=== PATIENT | female | born 1980 | race Two or more races ===

== ENCOUNTER 2023-11-26 22:26 | Emergency (ER) | payer SELFPAY ==
[~2023-11-26] VITALS: Ht 152.4 cm; Wt 112.0 kg
[~2023-11-26 22:26] MED LIST: ACET-1882 PO; ERGO1CAP23 PO; INSLANTI SC; INSREGI SC; LEVO500T91 PO; MET500T PO; METF-372 PO; POTA-36 PO
[2023-11-27 03:50] LABS: Basophils # (auto) 0.1 10 ^3/uL (0-0.2); Basophils % (auto) 1.4 % (0.0-2.0); Eosinophils # (auto) 0.3 10 ^3/uL (0-0.8); Eosinophils % (auto) 3.6 % (0.0-7.0); Hematocrit 40.4 % (36.0-46.0); Hemoglobin 13.1 g/dL (12.2-16.2); Lymphocytes # (auto) 2.4 10 ^3/uL (0.4-5.4); Lymphocytes % (auto) 31.9 % (10.0-50.0); Mean Corpuscular Hemoglobin 29.3 pg (28.0-32.0); Mean Corpuscular Hgb Conc. 32.4 g/dL (32.0-36.0); Mean Corpuscular Volume 90.3 fL (80.0-100.0); Monocytes # (auto) 0.6 10 ^3/uL (0-1.3); Neutrophils # (auto) 4.2 10 ^3/uL (1.6-8.6); Neutrophils % (auto) 55.1 % (37.0-80.0); Nucleated Red Blood Cells % 0.1 %; Red Blood Cells 4.47 10^6/uL (4.0-5.20); Red Cell Distribution Width 12.9 % (11.8-14.3); White Blood Cell 7.7 10^3/uL (4.4-10.8)
[2023-11-27 04:15] LABS: Alanine Aminotransferase 17 U/L (7-40); Albumin 4.2 g/dL (3.2-4.8); Alkaline Phosphatase 100 U/L (46-116); Anion Gap 7 (5-15); Aspartate Aminotransferase 21 U/L (13-40); Bilirubin, Total 0.3 mg/dL (0.2-1.0); Blood Urea Nitrogen 13 mg/dL (9-23); Calcium 9.6 mg/dL (8.7-10.4); Carbon Dioxide 26 mmol/L (20-30); Chloride 106 mmol/L (98-107); Glucose 164 mg/dL (74-106); Potassium 4.3 mmol/L (3.5-5.1); Sodium 139 mmol/L (136-145); Total Protein 7.4 g/dL (5.7-8.2)
[2023-11-27] MEDS ORDERED: BAC09TP TOP (05:34)
[2023-11-27 05:43] VITALS: BP 151/91; PULSE 101; RESP 18; TEMP 98.1; O2SAT 98
== END 2023-11-27 05:42 | disposition home or self-care (01) ==
LOC: ER 22:26
DX: T85.63 Leakage of other specified internal prosthetic devices, implants and grafts (principal); E11.9 Type 2 diabetes mellitus without complications; Z48.03 Encounter for change or removal of drains; Z98.890 Other specified postprocedural states; Z79.899 Other long term (current) drug therapy; X58.XXXD Exposure to other specified factors, subsequent encounter
CPT/HCPCS: 36415; 74176; 80053; 85025

== ENCOUNTER 2024-07-18 08:34 | Emergency (ER) | payer SELFPAY ==
[~2024-07-18] VITALS: Ht 154.9 cm; Wt 118.2 kg
[~2024-07-18 08:34] MED LIST changes: +BAC09TP TOP
--- NOTE | 2024-07-18 09:35 | ED.PDOC ---
Back pain HPI HPI Comments 43-year-old female patient presents to the emergency room for right-sided neck pain that started 1 week ago. Patient reports that she was doing yd work outside and that she woke up with the pain the next day. Patient reports that she was unable to rotate the neck. Patient now has full range of motion to the neck. Patient has severe tenderness to the right side of the neck radiating to the shoulder. Patient reports that she has been taking a leave and her 's muscle relaxer which has minimally decreased the pain. Patient has an appointment with her primary care physician on August 24. Chief Complaint: Neck Pain Time Seen by MD: 08:53 Primary Care Provider: AMANDA Reviewed Notes: Nurses Notes, Medications Allergies: Coded Allergies: NO KNOWN ALLERGIES (Unverified , 11/10/23) Home Meds Active Scripts Lidocaine (Lidocaine) 5 % Pad, 5 % EX DAILY PRN for 30 Days, #30 PATCH 0 Refills Prov:CHRISSY HOOPER [facility] 07/18/24 Tizanidine Hydrochloride (Zanaflex) 4 Mg Cap, 1 CAP PO TID PRN for 21 Days, #63 CAP 0 Refills Prov:CHRISSY HOOPER [facility] 07/18/24 Prednisone (Prednisone) 20 Mg Tab, 50 MG PO DAILY for 5 Days, #5 TAB 0 Refills Prov:CHRISSY HOOPER [facility] 07/18/24 Ibuprofen Micronized (Ibuprofen) 800 Mg Tab, 800 MG PO TID for 30 Days, #90 TAB 0 Refills Prov:EAR[facility]adhaCH[facility]ISSY [facility] 07/18/24 Bacitracin (Bacitracin Oint) 1 Applic Ap, 1 APPLIC TOP TID, #30 GM Prov:CARINA BEAUCHAMP MD 11/27/23 Metformin Hydrochloride (Metformin Hcl) 1,000 Mg Tab, 500 MG PO BID for 30 Days, #30 TAB Prov:LOLA FORD 11/15/23 Potassium Chloride (POTASSIUM CHLORIDE CR) 10 Meq Tb, 1 TAB PO DAILY for 7 Days, #7 TAB 5 Refills Prov:LOLA FORD 11/15/23 Insulin Regular (Human) (Novolin R) 100 Unit/Ml Inj, 2 UNITS SC IQ4HR for 30 Days, #30 INJ Prov:LOLA FORD 11/15/23 Insulin Glargine (Lantus) 100 Unit/Ml Inj, 15 UNITS SC HS for 30 Days, #30 INJ Prov:LOLA FORD [facility] 11/15/23 Insulin Glargine (Lantus) 100 Unit/Ml Inj, 15 UNITS SC QAM for 30 Days, #30 INJ Prov:LOLA FORD [facility] 11/15/23 Ergocalciferol (VITAMIN D 85959 UNIT) 50,000 [place], [address] UNIT PO Q7D for 30 Days, #10 CAP Prov:LOLA FORD [facility] 11/15/23 Metronidazole (Metronidazole) 500 Mg Tab, 500 MG PO TID for 7 Days, #21 TAB Prov:LOLA FORD [facility] 11/15/23 Levofloxacin Hemihydrate (LEVOFLOXACIN) 500 Mg Tab, 1 TAB PO DAILY, #7 TAB Prov:LOLA FORD [facility] 11/15/23 Acetaminophen (Acetaminophen) 325 Mg Tab, 650 MG PO Q6HP PRN for 30 Days, #240 TAB Prov:LOLA FORD [facility] 11/15/23 Mode of Arrival: Ambulatory Past Medical History PAST MEDICAL HISTORY: DM, Denies Surgical History: COSMETIC MANAGER History: No Pertinent COSMETIC MANAGER History Family History Family History: Reviewed,noncontributory to illness, Unknown Social History Smoker: Non-Smoker Alcohol: Denies ETOH Use Drugs: Denies Drug Use Lives In: Home Constitutional: denies: chills, diaphoresis, fatigue, fever, malaise, sweats, weakness, others EENTM: denies: blurred vision, double vision, ear bleeding, ear discharge, ear drainage, ear pain, ear ringing, eye pain, eye redness, hearing loss, mouth pain, mouth swelling, nasal discharge, nose bleeding, nose congestion, nose p ain, photophobia, tearing, throat pain, throat swelling, voice changes, others Respiratory: denies: cough, hemoptysis, orthopnea, SOB at rest, shortness of breath, SOB with excertion, stridor, wheezing, others Cardiovascular: denies: chest pain, dizzy spells, diaphoresis, Dyspnea on exertion, edema, irregular heart beat, left arm pain, lightheadedness, palpitations, PND, syncope, others Gastrointestinal: denies: abdomen distended, abdominal pain, blood streaked bowels, constipated, diarrhea, dysphagia, difficulty swallowing, hematemesis, melena, nausea, poor appetite, poor fluid intake, rectal bleeding, rectal pain, vomiting, others Genitourinary: denies: abnormal vagina bleeding, burning, dyspareunia, dysuria, flank pain, frequency, hematuria, incontinence, pain, , vagina discharge, urgency, others Neurological: denies: dizziness, fainting, headache, left sided numbness, left sided weakness, numbness, paresthesia, pre-existing deficit, right sided numbness, right sided weakness, seizure, speech problems, tingling, tremors, weakness, others Musculoskeletal: reports: neck pain (right sided muscle pain) Integumetry: denies: bruises, change in color, change in hair/nails, dryness, laceration, lesions, lumps, rash, wounds, others Allergic/Immunocompromised: denies: Difficulty Healing, Frequent Infections, Hives, Itching, others Hematologic/Lymphatic: denies: anemia, blood clots, easy bleeding, easy bruising, swollen glands, others Endocrine: denies: excessive hunger, excessive sweating, excessive thirst, excessive urination, flushing, intolerance to cold, intolerance to heat, unexplained weight gain, unexplained weight loss, others Psychiatric: denies: anxiety, bipolar disorder, depression, hopeless, panic disorder, schizophrenia, sleepless, suicidal, others All Other Systems: Reviewed and Negative Physical Exam General Appearance: No Apparent Distress, Normal HEENT: Normal ENT Inspection, Pharynx Normal, TMs Normal Neck: Full Range of Motion, Normal, Normal Inspection, Tender Lateral (right side of neck ) Respiratory: Chest Non-Tender, Lungs Clear, No Accessory Muscle Use, No Respiratory Distress, Normal Breath Sounds Cardiovascular: No Edema, No JVD, No Murmur, No Gallop, Normal Peripheral Pulses, Regular Rate/Rhythm Breast Exam: Deferred Gastrointestinal: No Organomegaly, Non Tender, No Pulsatile Mass, Normal Bowel Sounds, Soft Genitalia: Deferred Pelvic: Deferred Rectal: Deferred Extremities: No calf tenderness, Normal capillary refill, Normal inspection, Normal range of motion, Non-tender, No pedal edema Musculoskeletal : Location: Right Extremity Location: Other (neck) Apperance: Normal, Tenderness (right sided neck pain and increased ttp) Neurologic: Alert, cigar packer and picker II-XII nml as Tested, No Motor Deficits, Normal Affect, Normal Mood, No Sensory Deficits Cerebellar Function: Normal Reflexes: Normal Skin: Dry, Normal Color, Warm Lymphatic: No Adenopathy Was a procedure done? Was a procedure done?: No Back Pain Differential Dx Differential Diagnosis: Musculoskeletal Pain, Strain X-Ray, Labs, Meds, VS Vital Signs Date Time Temp Pulse Resp B/P (MAP) Pulse Ox O2 Delivery O2 Flow Rate FiO2 07/18/24 10:37 17 97 Room Air* 0 21 07/18/24 10:35 97.7 64 17 170/82 (111) 97 97.7 07/18/24 08:44 97.3 87 18 158/95 (116) 96 Current Medications Medications (Trade) Dose Ordered Sig/Cordell Route Start Time Stop Time Status Last Admin Ketorolac Tromethamine (Toradol Injection) 60 mg ONCE ONCE IM 07/18/24 09:45 07/18/24 09:53 DC 07/18/24 10:24 X-Ray, Labs, Meds, VS Comment On re-evaluation patient has symptomatic improvement. Patient is stable for discharge at this time. All test results and diagnostic imaging have been interpreted. All diagnostic findings, discharge care, and education instruction provided to the patient. Follow-up with PCP in 2-3 days Patient verbalized understanding, discharge instructions and agrees to treatment plan Vital signs are stable Patient is ambulatory Patient advised of which symptoms necessitate a return visit to the emergency room. Patient to return emergency room for any new worsening symptoms. Patient is aware that the purpose of this visit is for an acute medical emergency requiring emergent stabilization. Chronic conditions, including malignancies have not been ruled out. Patient is instructed to follow up with PCP as directed for continued care and workup. If unable to arrange follow up, patient is to return to the emergency room for reassessment. Patient was given verbal and written discharge instructions and acknowledges understanding Time of 1ST Reevaluation: 09:35 Reevaluation 1ST: Improved Patient Education/Counseling: Diagnosis, Treatment, Prognosis, Need For Follow Up Family Education/Counseling: No Family Present Departure 1 Departure Time of Disposition: 09:53 Impression: Primary Impression: Musculoskeletal neck pain Disposition: 01 HOME / SELF CARE / HOMELESS Condition: Stable e-Prescriptions Lidocaine (Lidocaine) 5 % Pad 5 % EX DAILY PRN for 30 Days, #30 PATCH 0 Refills Prov: CHRISSY HOOPERP 07/18/24 Tizanidine Hydrochloride (Zanaflex) 4 Mg Cap 1 CAP PO TID PRN for 21 Days, #63 CAP 0 Refills Prov: CHRISSY HOOPER [facility] 07/18/24 Prednisone (Prednisone) 20 Mg Tab 50 MG PO DAILY for 5 Days, #5 TAB 0 Refills Prov: CHRISSY HOOPER [facility] 07/18/24 Ibuprofen Micronized (Ibuprofen) 800 Mg Tab 800 MG PO TID for 30 Days, #90 TAB 0 Refills Prov: CHRISSY HOOPER [facility] 07/18/24 Discharged With: Self Critical Care Note Critical Care Time?: No Stability Stability form required: No Heart Score Heart Score: Heart Score Response (Comments) Value History N/A 0 EKG N/A 0 Age N/A 0 Risk Factors N/A 0 Troponin N/A 0 Total 0 CHRISSY HOOPER [facility] Jul 18, 2024 09:35
[2024-07-18] MEDS ORDERED: PRED20TA2 PO (09:52)
[2024-07-18] MEDS ORDERED: TIZA4CAP PO (09:52)
[2024-07-18] MEDS ORDERED: LIDO1PAD55 EX (09:52)
[2024-07-18] MEDS ORDERED: IBUP-1455 PO (09:52)
[2024-07-18] MEDS: KETOROLAC TROMETH 60MG/2ML VIAL IM ONE (10:24)
[2024-07-18 10:35] VITALS: BP 170/82; PULSE 64; TEMP 97.7
[2024-07-18 10:37] VITALS: RESP 17; O2SAT 97
== END 2024-07-18 10:38 | disposition home or self-care (01) ==
LOC: ER 08:34
DX: M54.2 Cervicalgia (principal); E11.9 Type 2 diabetes mellitus without complications; Z79.899 Other long term (current) drug therapy; Z98.890 Other specified postprocedural states
CPT/HCPCS: 96372; 99283; J1885